=== PATIENT | female | born 1945 | race Caucasian/White ===

== ENCOUNTER 2024-01-01 10:09 | Inpatient (IN) | payer MEDICARE, OTHER, SELFPAY ==
[2024-01-01] VITALS (19 sets, daily range): BP systolic 86–162; BP diastolic 52–102; BMI 21.0
[2024-01-01 05:38] LABS: % Basophils 0.7 % (0-2); % Eosinophils 1.1 % (0-6); % Immature Granulocytes 0.4 % (0-0.5); % Lymphocytes 16.3 % (20.5-51.1); % Monocytes 8.1 % (1.7-9.3); % Neutrophils 73.4 % (42.2-75.2); Absolute Basophils 0.1 10^3/uL (0-0.2); Absolute Eosinophils 0.1 10^3/uL (0-0.7); Absolute Lymphocytes 1.1 10^3/uL (1.2-3.4); Absolute Monocytes 0.6 10^3/uL (0.1-0.6); Absolute Neutrophils 5.1 10^3/uL (1.4-6.5); Hematocrit 35.7 % (37.0-47.0); Hemoglobin 12.4 g/dL (12.0-16.0); Mean Corp Hgb Conc. 34.7 g/dL (33.0-37.0); Mean Corpuscular Volume 89.3 fL (81.0-99.0); Mean Platelet Volume 10.2 fL (7.4-10.4); Nucleated Red Blood Cells % 0 %; Platelet Count 253 10^3/uL (130-400); Red Cell Dist. Width 11.9 % (11.5-14.5)
[2024-01-01 05:52] LABS: ALT (SGPT) 20 U/L (0-35); AST (SGOT) 27 U/L (14-36); Albumin 3.8 g/dl (3.5-5.0); Alkaline Phosphatase 128 U/L (38-126); Blood Urea Nitrogen 17 mg/dl (7-17); Calcium 9.7 mg/dl (8.4-10.2); Carbon Dioxide 31 mmol/L (22-30); Chloride 98 mmol/L (98-107); Estimated Creatinine Clearance 55 ml/min; Glucose 105 mg/dl (70-99); Potassium 3.7 mmol/L (3.5-5.1); Sodium 133 mmol/L (135-145); Total Bilirubin 0.4 mg/dl (0.2-1.3); Total Protein 6.3 g/dl (6.3-8.2); eGFR > 60.00
--- NOTE | 2024-01-01 05:54 | ED.GENMED ---
History of Present Illness
General
Chief Complaint: Chest Pain
Source: patient
Exam Limitations: none
Time Seen by Provider: 01/01/24 05:54
Travel History
Have you had any contact with someone who has COVID-19?: No
Do you have any symptoms of coronavirus? Fever > 100 degrees, chills, cough, shortness of breath, sore throat, loss of taste or smell, muscle aches, or headache?: No
History of Present Illness
History of Present Illness:
Patient with relatively sudden mid chest pain or tightness with radiation to the left arm at about 4 AM. Not exertional. Has not felt well for months. However no previous episodes like this. No syncope. No diaphoresis. No radiation to the back
or neck. Symptoms are ongoing and possibly slightly improved.
Past History
Past History
ED Past Medical History: GERD, HTN, Hypercholesterolemia and Other (Osteoporosis)
ED Past Surgical History: Gynecological and Orthopedic
Social History
Tobacco: Former smoker
Personal:
Living: with family
Review of Systems
Review of Systems
All Other Systems: Not applicable
Constitutional: Reports fatigue; Denies fever or chills
Respiratory: Reports cough
Phy Exam
Physical Exam
Physical Exam:
GENERAL: Alert and oriented in no apparent distress
EYE: Orbits normal.
NECK: Supple, no thyroid palpable
ENT: Pharynx without erythema
CARDIAC: Regular rate and rhythm with occasional irregular beat
LUNGS: Clear breath sounds,normal
ABDOMEN: Soft, without focal tenderness or distention
NEUROLOGICAL: Alert and oriented , grossly non-focal
SKIN: Warm and dry, no rash or lesion, no discoloration, skin intact.
MUSCULOSKELETAL: No edema,no deformity.Good color
PSYCH: Normal and appropriate interaction.
Scores
Heart Score for Chest Pain Patients
STEMI patient?: No
History: Moderately Suspicious
ECG: Normal
Age: >/= 65 years
Risk Factors: 1 or 2 Risk Factors
Troponin: >/= 3 x Normal Limit
Heart Score for Chest Pain Patients: 6
Heart Score Risk: 20.3% MACE over next 6 weeks
Course
Orders/Labs/Results
Orders:
Orders
01/01/24 05:16
Electrocardiogram (*1) Urgent
Reason for Study: Chest Pain
Cardiac Monitoring- Treatment ONCE
EKG- Treatment ONCE
IV Insert/Care/Rem.- Treatment PRN
O2 Therapy [RESP] Urgent
Titrate/Wean O2 to maintain O2 sat greater than (%): 90
Special Instructions: Maintain sats >/=90%
Pulse Ox/spot Check [RESP] Urgent
Quantity: 1
Special Instructions: ON ROOM AIR
01/01/24 05:31
Complete Blood Count/With Diff Urgent
Comprehensive Metabolic Panel Urgent
Troponin I Urgent
01/01/24 06:08
CT Chest Pe Study Urgent
Comment:
Reason For Exam: Chest pain radiation to left arm
01/01/24 07:27
Electrocardiogram (*1) Stat
Reason for Study: Other
Other Reason for Exam: chest pain
EKG- Treatment ONCE
01/01/24 07:49
Troponin I Urgent
01/01/24 08:29
Pantoprazole [Protonix] 40 mg PO NOW STA
01/01/24 08:32
Echo 2D MMode Color/Doppler Routine
Reason for Study: Chest pain
01/01/24 08:45
Heparin 3,200 units IV NOW STA
Heparin 12085 Units/250 ml 25,000 units in 250 ml IV PER PROTOCOL
Weight to be used for heparin protocol in kilograms (kg):: 53.7
Protocol:: Cardiac Tx/Acute Coronary
PTT Goal Range to be used:: PTT 73 to 111 seconds
Order type:: Initial
INITIAL Infusion Dose (UNITS/KG/hr) & then follow protocol:: 12 units/kg/hr
Infusion Dose in UNITS/hr & then follow protocol (UNITS/hr):: 650
INFUSION RATE in mL/hr & then follow protocol (mL/hr):: 6.5
PTT less than or equal to 64 seconds:: Increase rate by 200 units/hr (+ 2 mL/hr)
PTT 64.1 to 72.9 seconds:: Increase rate by 100 units/hr (+ 1 mL/hr)
PTT 73 to 111 seconds:: Target Range. No change in rate.
PTT 111.1 to 130.9 seconds:: Decrease rate by 100 units/hr (- 1 mL/hr)
PTT 131 to 199.9 seconds:: HOLD for 1 hr. Then decrease rate by 200 units/hr (- 2 mL/hr)
PTT greater than or equal to 200 seconds:: HOLD for 2 hrs & Notify Provider. Then decrease by 200 units/hr (-
2 mL/hr)
Lab follow-up:: Each change, PTT q6h until 2 consecutive are therapeutic. Then PTT
daily.
Nursing to Place Non Medication Order As Directed
Physician Order: PTT 6 hours after initial start of Heparin infusion
01/01/24 09:21
PTT Urgent
Comment: Obtain baseline before beginning heparin infusion if not already collected
01/01/24 09:47
Admit/Transfer Patient As Directed
Co-Sign Provider:
Level of Care: Inpatient admission
Assign to:: Telemetry
Physician / Group: Mian
Diagnosis: Chest pain with concern fo ACS
Reason for Telemetry: Chest Pain syndromes
Date to Stop Telemetry: 01/03/24
Time to Stop Telemetry: 11:00
Reason for Hospitalization: Above
Expected length of stay greater than two midnights?: Yes
ELOS- Estimated Length of Stay in days: 2
I certify the patient meets the requirements for IP care: Yes
01/01/24 09:50
Code Status As Directed
Resuscitation Status: Full Code
01/03/24 11:00
DC Protocol for Telemetry ONCE
Abnormal Lab Results
01/01/24 01/01/24 01/01/24
05:31 07:49 09:21
RBC 4.00 L 10^6/uL
(4.20-5.40)
Hct 35.7 L %
(37.0-47.0)
Absolute Lymphs (auto) 1.1 L 10^3/uL
(1.2-3.4)
Lymphocytes % 16.3 L %
(20.5-51.1)
APTT 42.8 H Sec
(23.4-35.0)
Sodium 133 L mmol/L
(135-145)
Carbon Dioxide 31 H mmol/L
(22-30)
Glucose 105 H mg/dl
(70-99)
Alkaline Phosphatase 128 H U/L
(38-126)
Troponin I 1.100 H* D ng/ml
01/01/24 05:31
01/01/24 05:31
Vital Signs
Initial and Last Documented VS:
Initial Vital Signs
Temp Pulse Resp BP Pulse Ox
97.9 F 60 18 139/68 98
01/01/24 05:18 01/01/24 05:18 01/01/24 05:18 01/01/24 05:18 01/01/24 05:18
Last Documented Vital Signs
Temp Pulse Resp BP Pulse Ox
97.9 F 65 17 152/102 98
01/01/24 05:18 01/01/24 10:15 01/01/24 10:15 01/01/24 10:00 01/01/24 09:45
*Radiology
Radiology exam reviewed: radiology read reviewed (No pulmonary emboli. Calcified coronary arteries. Debris in the right lung)
*Pulse Oximetry
Patient hypoxic: no
*EKG
Interpreted by ED Provider?: Yes
Interpretation: normal
Comparison EKG: no changes
Heart Rate: 61
Rate: normal
Rhythm: sinus
[place]: normal axis
Interval: normal interval
QRS Pattern: normal QRS
Ischemia: no ischemia
*Pharmaceutical Engineer Interpretation
Rate: normal
Interpretation: abnormal
Heart Rate: 62
Rhythm: sinus and other (Patient with 1 episode of runs of bigeminy.)
*Critical Care Note
Total Time (30-74mins, 75-104mins- exclusive of procedures): 20
Update Note
Update Note:
Patient had been referred to cardiology based on symptom complex and risk factors. Second troponin is positive. Heparin ordered. Cardiology currently in the room reevaluating
ED Attending Note
-
Portions of this chart may have been created with voice recognition software.� Occasional wrong word or��sound alike� substitutions may have occurred due to the inherent limitations of voice recognition software.
Discharge Plan
Departure
Patient Disposition: Admit
Date of Disposition: 01/01/24
Time of Disposition: 08:23
Presentation/result/management discussed w/ accepting MD/DO: Cardiology
Discharge Problem:
Chest pain, Suspicion for underlying CAD, Inflammation right lung, Possible aspiration, Non-STEMI OR
Interventions
Interventions:
*Risk Screen - Suicide Last Done: 01/01/24 05:18
*General Assessment Last Done: 01/01/24 05:18
*Neglect/Abuse Screening Last Done: 01/01/24 05:18
ED- Fall Risk Assessment Last Done: 01/01/24 05:37
*ED COVID-19 Vaccine History Last Done: 01/01/24 05:56
ED- Cardiac Assessment Last Done: 01/01/24 06:09
[2024-01-01 06:03] LABS: Troponin I 0.013 ng/ml
--- NOTE | 2024-01-01 06:19 | EDRN ---
Pt had run of lauren while Dr Guardado was in the room speaking with pt. Rhythm strips printed and shown to Dr Guardado.
--- NOTE | 2024-01-01 08:21 | CON.CAR ---
Addendum entered and electronically signed by Fredrick Brown MD 01/01/24 09:40:
Primary fuel pilot engineer is Dr. Jacinto Rice.
78-year-old patient with a history of hypertension hypercholesterolemia COPD and bronchiectasis who presented with chest discomfort. Tightness across her chest with radiation down left arm. Total duration 1 hour. Currently chest pain-free no
acute ECG changes. Patient states in general she has not felt great over the last 4 weeks, this includes a dry cough. She has a history of GERD and is on omeprazole. Emergency department forms chest CT which was negative for PE. Patient
received aspirin 81 mg x 4 by report. First troponin negative. Has remained chest pain-free second troponin is elevated at 1.1.
Presentation consistent with ACS. Reviewed issues with patient and her . Cardiac catheterization recommended. Importance of aspirin and antiplatelet therapy post catheterization clearly explained to the patient. Initially she had some
concerns because she tends to have some bruising on her arms. I explained to her that aspirin is long-term and we would not proceed with catheterization and coronary stenting and when she would agree to long-term aspirin. Patient is in agreement.
Issues also were reviewed with her primary fuel pilot engineer Dr. Jacinto Rice. Also note that Dr. Rice is also her cousin.
-Aspirin
-Heparin
-Statin
-Plan for cardiac catheterization further recommendations based on results.
-echo
-Continue treatmentwith PPI
-Evaluation of complaints of cough to be directed by hospitalist.
Original Note:
Consultation
Consultation Request
Date/Time Consultation Requested: 01/01/2024 07:15
Date/Time Consultation Performed: 01/01/2024 07:40
Requesting Provider: Dr. Guardado
Performing Provider: JONATHAN Glass for Dr. Brown
Reason for Consultation: Chest discomfort
Medical History
-
Chief Complaint: Chest tightness
History of Present Illness:
Jil Daigle is a 78-year-old female with hypertension, dyslipidemia, GERD, osteopenia, COPD, bronchiectasis, former smoker, and chronic sinusitis who presents to the ER with a chief complaint of chest tightness. She woke up at approximately 4 AM
to go to the bathroom when she began experiencing severe chest tightness. This radiated down her left arm. She denies associated symptoms of shortness of breath, nausea, vomiting, and diaphoresis. She described her chest tightness as 8/10 in
severity. She called 911. She chewed 324 mg of aspirin. When EMS arrived they had difficulty placing an intravenous line so they did not give her any sublingual nitroglycerin. Her chest tightness persisted for just under 1 hour. It resolved
spontaneously while in the emergency room. Her EKG is stable. CT of the chest showed coronary artery calcifications.
Last month she was having issues with her blood pressure. Her medications were adjusted by her cousin, Dr. Jacinto Rice (fuel pilot engineer). She was on clonidine but it caused severe insomnia and has been discontinued. Her blood pressure has been
120-145 mmHg systolic at home. Her cuff has been correlated by her PCP. She had a Lexiscan nuclear stress test in January, that did not show any abnormality.
Jil has been experiencing the general sense of unwellness for approximately 4 weeks. Her knees have been aching. She had bilateral knee replacements and saw orthopedics in the outpatient setting but did not find any acute cause. She also has
shoulder discomfort. Her shoulder discomfort gets better with exercise and is worse at rest. She is also been experiencing intermittent abdominal pain and has an appointment with GI in the outpatient setting for February. She has had a cough for
the past 4 weeks. She feels it is worse at night when she lays down. This is disrupting her sleep and causing fatigue during the day. She has tried lozenges and is on medication for GERD. The cough is mainly dry but will rarely be productive.
She is accompanied by her , Eileen, who was present for this consultation.
Past Medical History
Past Medical History: COPD, GERD, HTN, Hypercholesterolemia and Other (Bronchiectasis)
Past Surgical History: Gynecological and Orthopedic
Social History
Tobacco: Former Smoker
Personal:
Living: With Family
Family History
Family History: Reviewed & Not Pertinent (Mother just before 100 birthday. Father at the age of 70 due to lymphoma. Son of melanoma at the age of 48.)
Allergies / Home Medications
Allergy/AdvReac Type Severity Reaction Status Date / Time
chocolate flavor Allergy URI Verified 01/01/24 05:16
coconut Allergy URI Verified 01/01/24 05:16
dog dander Allergy URI Verified 01/01/24 05:16
erythromycin base Allergy Nausea / Verified 01/01/24 05:16
Vomiting;
Severe
stomach
pains
feathers Allergy URI Verified 01/01/24 05:16
peanut Allergy URI Verified 01/01/24 05:16
sesame seed Allergy URI Verified 01/01/24 05:16
silk Allergy URI Verified 01/01/24 05:16
soy Allergy URI Verified 01/01/24 05:16
tree nut Allergy URI Verified 01/01/24 05:16
�Medication �Instructions �Recorded �Confirmed �Type
cetirizine 10 mg tablet 10 mg PO DAILY Allergies 12/21/21 01/01/24 History
fluticasone propionate 50 1 spray intranasal DAILY PRN 12/21/21 01/01/24 History
mcg/actuation nasal Congestion
spray,suspension
metoprolol succinate 25 mg 25 mg PO DAILY Blood pressure 12/21/21 01/01/24 History
tablet,extended release 24 hr
omeprazole 20 mg capsule,delayed 20 mg PO DAILY Gastrointestinal 12/21/21 01/01/24 History
release issue
ascorbic acid (vitamin C) 1,000 mg 1 g PO DAILY 01/19/23 01/01/24 History
tablet (Vitamin C)
atorvastatin 10 mg tablet 10 mg PO DAILY 01/19/23 01/01/24 History
cholecalciferol (vitamin D3) 125 125 mcg PO DAILY 01/19/23 01/01/24 History
mcg (5,000 unit) tablet (Vitamin
D3)
qcmecwdw-[id number]-FA-Ca carb-vit K 1 tab PO DAILY 01/19/23 01/01/24 History
18 mg iron-400 mcg-500 mg tablet
(Women's Daily Formula)
cyclosporine 0.05 % eye drops in a 1 drp ophthalmic (eye) Q12H 02/16/23 01/01/24 History
dropperette (Restasis)
hydrochlorothiazide 12.5 mg tablet 12.5 mg PO DAILY #0 tabs 02/20/23 01/01/24 Rx
lisinopril 40 mg tablet 40 mg PO DAILY #0 tabs 02/20/23 01/01/24 Rx
diazepam 5 mg tablet 2.5 mg (1/2 x 5 mg) PO HS #0 tabs 05/08/23 01/01/24 Rx
Review of Systems
-
History Source: Patient
All other systems: Negative unless noted
Constitutional: Fatigue
EENT: No Symptoms
Respiratory: Cough
Cardiac: No Symptoms
Abdomen/GI: No Symptoms
: No Symptoms
Musculoskeletal: No Symptoms
Skin: No Symptoms
Neurological: No Symptoms
Endocrine: No Symptoms
Hematologic/Lymphatic: No Symptoms
Physical Exam
Vital Signs
Temp Pulse Resp BP Pulse Ox
97.9 F 75 14 128/60 100
01/01/24 05:18 01/01/24 07:30 01/01/24 07:30 01/01/24 07:00 01/01/24 07:30
Lab Results
01/01/24 05:31
01/01/24 05:31
Troponin I 0.013 ng/ml 01/01/24 05:31
Physical Exam
General: Well Developed, Well Nourished, No Apparent Distress and Comfortable
HEENT: Normocephalic, Anicteric and Moist Mucous Membranes
Respiratory: Clear and Non Labored Respirations
Cardiac: S1/S2 and Regular Rhythm; Negative Peripheral Edema
Breast: Deferred by me
GI: Soft, Non Tender, Non Distended and Normal Bowel Sounds
Rectal: Deferred by Provider
Genito-urinary: No Costovertebral Tender
Musculoskeletal: No Clubbing, No Cyanosis and No Edema
Skin: Warm and Dry
Neuro: AO x 3
Hematologic/Lymphatic: No Lymphadenopathy
Psych: Calm
Impression / Plan
-
Chest tightness
-Chest tightness with radiation to left arm persisting for just under 1 hour
-EKG is stable
-Initial troponin 0.013, trend
-Coronary artery calcifications on CT
-Echocardiogram
Abnormal chest CT
-Layering debris's and RML, small centrilobular nodular opacities in RML, consideration for aspiration
Cough, per primary service
Hypertension, chronic
-BP stable
-She was intolerant to clonidine as a cause severe insomnia
Mild mitral regurgitation
Mild tricuspid regurgitation
Dyslipidemia, TC 158, HDL 60, LDL 85, TG 52, increase atorvastatin to 20 mg daily
GERD, on PPI
COPD
Bronchiectasis
Former smoker, continued cessation recommended
Data Reviewed
-
EKG: Report Reviewed by me (Sinus rhythm, rate 61)
Medical Tests (Nuc Med, Echo etc): Report Reviewed by me (Prior cardiac testing and CT as above)
Labs: Labs Reviewed by me
Old Records: Reviewed (Outpatient PCP and pulmonary notes)
[2024-01-01 09:38] LABS: APTT 42.8 Sec (23.4-35.0)
--- NOTE | 2024-01-01 10:00 | HPS.HSE ---
Family Physician
-
Family Physician: Zeina Tate
Chief Complaint
-
Chest pain
History of Present Illness
Patient is a 78 years old female with history of hypertension, dyslipidemia, COPD with bronchiectasis presents to the emergency room with chest discomfort. Patient describes tightness across her chest mostly on the left side radiating to the left
arm. She experiences symptoms for about an hour. At the time of my examination patient was chest pain-free while initiated on IV heparin. In addition patient has a history of GERD and she has been placed on omeprazole. She denies any fever or
chills. She has occasional cough, sometimes with oral intake, but denies any history of confirmed aspiration.
While emergency room evaluation patient's EKG showed no evidence of ischemia, her second set of troponin is 1.0.
Patient was initiated on IV heparin and given aspirin and currently chest pain-free
Additional lesion with CT scan of the chest was negative for pulmonary embolism, showed right middle lobe small centrilobular type nodular opacities that could be consistent with aspiration,? Pneumonia.
Patient seen and evaluated by cardiology and with concern for acute coronary syndrome plan for urgent cardiac catheterization.
Medical History
Past Medical History
Past Medical History: Reports COPD (Bronchiectasis), GERD, HTN and Hypercholesterolemia
Past Surgical History: Reports Other (Orthopedic)
Social History
Tobacco: Former Smoker
Alcohol: Occasional
Drug: None
Personal:
Living: With Family
Family History
Family History: Not pertinent
Allergies / Home Medications
Allergies reflects when Allergies were last updated in [facility].
Home Medications with original date entered in [facility]
Allergy/Medication List:
Allergies
Allergy/AdvReac Type Severity Reaction Status Date / Time
chocolate flavor Allergy URI Verified 01/01/24 05:16
coconut Allergy URI Verified 01/01/24 05:16
dog dander Allergy URI Verified 01/01/24 05:16
erythromycin base Allergy Nausea / Verified 01/01/24 05:16
Vomiting;
Severe
stomach
pains
feathers Allergy URI Verified 01/01/24 05:16
peanut Allergy URI Verified 01/01/24 05:16
sesame seed Allergy URI Verified 01/01/24 05:16
silk Allergy URI Verified 01/01/24 05:16
soy Allergy URI Verified 01/01/24 05:16
tree nut Allergy URI Verified 01/01/24 05:16
Home Medications
fluticasone propionate 50 mcg/actuation nasal spray,suspension 1 spray intranasal DAILYPRN PRN Congestion 12/21/21
metoprolol succinate 25 mg tablet,extended release 24 hr 25 mg PO DAILY Blood pressure 12/21/21
omeprazole 20 mg capsule,delayed release 20 mg PO DAILY Gastrointestinal issue 12/21/21
ascorbic acid (vitamin C) 1,000 mg tablet (Vitamin C) 1 g PO DAILY 01/19/23
atorvastatin 10 mg tablet 10 mg PO DAILY 01/19/23
cholecalciferol (vitamin D3) 125 mcg (5,000 unit) tablet (Vitamin D3) 125 mcg PO DAILY 01/19/23
cyclosporine 0.05 % eye drops in a dropperette (Restasis) 1 drp BOTH EYES Q12H 02/16/23
hydrochlorothiazide 12.5 mg tablet 12.5 mg PO DAILY #0 tabs 02/20/23
lisinopril 40 mg tablet 40 mg PO DAILY #0 tabs 02/20/23
Lactobac no.2-Bifidobac no.1-S. thermo 112.5 billion cell capsule (Visbiome) 1 cap PO DAILY 01/01/24
diazepam 5 mg tablet 2.5 mg PO DAILYPRN PRN jaw spasms 01/01/24
therapeutic multivitamin 1 tab PO DAILY 01/01/24
Review of Systems
-
A 12 point ROS was completed and negative except as noted: Yes
Respiratory: Reports See HPI
Cardiac: Reports See HPI
Abdomen/GI: Reports See HPI
Physical Exam
Vital Signs
Vital Signs
Temp Pulse Resp BP Pulse Ox
97.9 F 75 14 128/60 100
01/01/24 05:18 01/01/24 07:30 01/01/24 07:30 01/01/24 07:00 01/01/24 07:30
Physical Exam
General: Well Developed, Well Nourished and No Apparent Distress
HEENT: NormoCephalic, Moist mucous membranes and Atraumatic
Respiratory: Clear
Cardiac: S1/S2 and Regular Rhythm; No Murmur or Rub
GI: Soft, Non Tender, Non Distended and Normal Bowel Sounds; No Organomegaly
Rectal: Deferred by Provider
Musculoskeletal: No Clubbing, No Cyanosis and No Edema
Skin: No Rash
Neuro: Awake, Alert, Oriented, AO x 3 and Nonfocal/grossly intact
Laboratory Results
-
01/01/24 05:31
01/01/24 05:31
Laboratory Results
APTT 42.8 Sec (23.4-35.0) H 01/01/24 09:21
Total Bilirubin 0.4 mg/dl (0.2-1.3) 01/01/24 05:31
AST 27 U/L (14-36) 01/01/24 05:31
ALT 20 U/L (0-35) 01/01/24 05:31
Alkaline Phosphatase 128 U/L (38-126) H 01/01/24 05:31
Troponin I 1.100 ng/ml H* D 01/01/24 07:49
Data Reviewed
-
CT Scan: Image Personally Visualized and interpreted
Lab Data: Labs Reviewed by me
Impression/Plan
-
IMPRESSION:
Chest pain with concern for acute coronary syndrome
Right middle lobe opacity on CT scan with concern for aspiration.
Mild hyponatremia sodium 133
Conditions prior to admission:
Essential hypertension.
Dyslipidemia
GERD.
COPD with bronchiectasis
Former smoker
Osteoarthritis
PLAN:
Chest pain with concern for acute coronary syndrome
No prior history of CAD.
EKG with no ischemia
Troponin rising at 1.0.
Started on aspirin and initiated on IV heparin.
Echocardiogram is pending
Plan is for urgent cardiac catheterization
Trend troponin
Continue metoprolol and statin
Essential hypertension
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
Hold HCTZ given mild hyponatremia
Mild hyponatremia
Will hold HCTZ
Follow BMP
Right middle lobe opacity with concern for possible aspiration pneumonitis.
Patient complains occasional cough, waking up at night
She has a history of GERD
Her most recent EGD showed chronic gastritis.
No prior history of overt aspiration.
She presents being afebrile with normal white count.
Check procalcitonin
Monitor closely off antibiotics, although would be low threshold to start coverage for aspiration pneumonia afebrile.
Speech and swallow consultation
Continue PPI
COPD with bronchiectasis
Stable respiratory status
Patient is not on home O2.
No bronchospasm on exam.
Former smoker, quit years ago.
DVT prophylaxis IV heparin/mechanical
Full code
[2024-01-01] MEDS: HEPARIN 3200 UNITS IV (10:10)
[2024-01-01] MEDS: HEPARIN 25000 UNITS/250 ML IV (10:13)
--- NOTE | 2024-01-01 15:10 | PTCARENOTE ---
Assumed care of pt upon tsf from ED. VS taken, and pt called to [facility].
[2024-01-01 16:04] LABS: ACT-LR - POC 393 Seconds (116-155)
--- NOTE | 2024-01-01 16:33 | ITS.CL.ANGIO ---
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
Angioplasty
Procedure Report:
CARDIAC CATHETERIZATION REPORT
Date of Procedure: 01/01/2024
Referring: Fredrick Brown M.D.
INDICATION: Non-ST elevation myocardial infarction.
PROCEDURE:
1. Left heart catheterization.
2. Coronary angiography.
3. Successful PCI of the left circumflex artery.
ACCESS:
6 [place] right radial artery.
CATHETERS:
1. 5 [place] JR4.
2. 5 [place] JL 3.5.
3. 6 [place] EBU 3.5 guiding catheter.
HEMODYNAMIC DATA
Weight (kg): 53.5
AO (s/d/x, mmHg): 123/67/91
LV (s/x mmHg): 123/6
LEFT VENTRICULOGRAPHY: Not performed.
CORONARY ANGIOGRAPHY
Dominance: Right.
Left Main: Normal size, bifurcating vessel. There is no coronary artery disease.
LAD: Normal size vessel giving rise to several small diagonals. There are minor luminal irregularities in the mid vessel.
Ramus: Congenitally absent.
Circumflex: Large size, nondominant vessel giving rise to 2 significant marginals. OM1 is a 2 mm vessel arising fairly high off of the circumflex. OM 2 is a large vessel supplying the majority of the inferolateral wall. There is a 75% lesion in
the distal circumflex, immediately proximal to the takeoff of OM 2.
RCA: Normal size, dominant vessel. There are minor luminal irregularities in the mid vessel.
INTERVENTION(S)
1. Successful PCI of the 75% distal circumflex lesion (Xience Skypoint 3.5 x 18 YG, postdilated with a 3.5 NC balloon) with reduction in stenosis to 0%, maintaining ARSLAN-3 flow.
Narrative:
The decision was made to proceed with percutaneous coronary intervention. The diagnostic catheter was removed over a wire and a 6Fr EBU 3.5 guiding catheter was advanced to the aortic root and seated in the left main coronary artery. Additional
heparin was given and a Power Turn Flex wire was advanced into the distal aspect of OM 2. The 75% distal circumflex lesion was predilated with a 2.0 x 12 semi-compliant balloon to 12 charity. The semi-compliant balloon was removed and a Xience Skypoint
3.5 x 18 drug-eluting stent was advanced. The stent was deployed at 12 atmospheres. The stent balloon was removed. A 3.5 x 12 noncompliant balloon was advanced into the stent and the stent was postdilated to 12 atmospheres. Angiography was performed
in orthogonal views, confirming good stent expansion and an excellent angiographic result. The coronary wire was withdrawn and the guide was disengaged from the artery. The catheter was removed over a standard J-wire.
Closure Device: Vascular band.
Radiation (mGy): 215.83
DAP (cm2.Gy): 12.0692
Fluoroscopy time (minutes): 6.9
Sedation time (minutes): 41
CONCLUSIONS
1. Right dominant circulation with luminal irregularities in the RCA and mid LAD and a 75% lesion in the distal circumflex, status post successful PCI (Xience Skypoint 3.5 x 18 YG, postdilated with a 3.5 NC balloon) with reduction in stenosis to
0%, maintaining ARSLAN-3 flow.
2. Normal filling pressures (LVEDP = 6 mmHg at 53.5 kg).
RECOMMENDATIONS:
1. Expectant management after cardiac catheterization via right rate approach.
2. Limited weight bearing on the right wrist for one week.
3. Dual antiplatelet therapy with aspirin and ticagrelor for at least 1 year, followed by aspirin indefinitely.
4. Aggressive risk factor modification with high-dose, high potency statin.
5. Echocardiogram ordered and pending.
6. Referral to cardiac rehab.
Copy to: Fredrick Brown M.D., Zeina Tate M.D.
Brady Lugo DO, FACC, FACP
--- NOTE | 2024-01-01 16:37 | CM ---
ivan scales at [facility]- her cost is $40/month- it is in stock
--- NOTE | 2024-01-01 17:00 | CM ---
spoke to pt in room, she is prev indep, lives with her in a 2 story home with 8 steps to enter. she deies any dc planning needs or dme's. plan is for dc to home when medically stable
[2024-01-01] MEDS: TOPROL XL 25 MG PO (17:11)
[2024-01-01] MEDS: ZESTRIL 40 MG PO (17:12)
[2024-01-01] MEDS: LIPITOR 40 MG PO (17:12)
[2024-01-01] MEDS: NSS 1000 IV (17:13)
[2024-01-01 17:26] LABS: Procalcitonin < 0.05 ng/ml (0.0-0.25)
--- NOTE | 2024-01-01 18:16 | PTCARENOTE ---
Called into pt's room, large hematoma noted from blood draw in LAC, pressure applied, and hematoma pressed out.
[2024-01-01] MEDS: RESTASIS 0.05% OPHTHALMIC EMULSION 1 DROPS BOTH EYES (20:03)
[2024-01-01 22:47] LABS: INR 1.07; PT 13.8 Sec (11.4-14.6)
[2024-01-01 22:48] LABS: APTT 39.4 Sec (23.4-35.0)
[2024-01-02] MEDS: VALIUM 2.5 MG PO (00:04)
--- NOTE | 2024-01-02 01:40 | PTCARENOTE ---
Right radial cath site with 2x2 dressing saturated with blood under tegaderm, I am continuing to observe asd assess site. Anxious at times. SR on the monitor in the 60-80's.
[2024-01-02 03:21] VITALS: BP 126/64
[2024-01-02 04:05] LABS: % Basophils 0.7 % (0-2); % Eosinophils 1.1 % (0-6); % Immature Granulocytes 0.5 % (0-0.5); % Lymphocytes 15.5 % (20.5-51.1); % Monocytes 6.6 % (1.7-9.3); % Neutrophils 75.6 % (42.2-75.2); Absolute Basophils 0.1 10^3/uL (0-0.2); Absolute Eosinophils 0.1 10^3/uL (0-0.7); Absolute Lymphocytes 1.2 10^3/uL (1.2-3.4); Absolute Monocytes 0.5 10^3/uL (0.1-0.6); Absolute Neutrophils 5.7 10^3/uL (1.4-6.5); Hematocrit 33.1 % (37.0-47.0); Hemoglobin 11.9 g/dL (12.0-16.0); Mean Platelet Volume 10.2 fL (7.4-10.4); Nucleated Red Blood Cells % 0 %; Platelet Count 228 10^3/uL (130-400); Red Blood Cell Count 3.72 10^6/uL (4.20-5.40); White Blood Cell Count 7.5 10^3/uL (4.8-10.8)
[2024-01-02 04:57] LABS: Blood Urea Nitrogen 13 mg/dl (7-17); Calcium 8.9 mg/dl (8.4-10.2); Carbon Dioxide 28 mmol/L (22-30); Chloride 104 mmol/L (98-107); Estimated Creatinine Clearance 62 ml/min; Glucose 91 mg/dl (70-99); HDL Cholesterol 43 mg/dl; LDL Cholesterol, Calculated 61 mg/dl; Potassium 3.9 mmol/L (3.5-5.1); Sodium 137 mmol/L (135-145); Total Cholesterol 121 mg/dl (50-199); Triglyceride 86 mg/dl (10-149); Very Low Density Lipoprotein 17 mg/dl (0-30); eGFR > 60.00
--- NOTE | 2024-01-02 08:47 | W.PN.CD ---
Today's Communication / Plan
-
cont ASA, Brilinta, Toprol XL, lisinopril, atorvastatin
change radial dressing
if stable radial site, and able to ambulate hallway: discharge planning
Impression / Plan
-
CAD/NSTEMI
-s/p PCI to Lcx 12/31
-no arrhythmia on tele
-echo: EF 65-70%, mild/mod MR
-stable, no angina
-cont ASA, Brilinta, Toprol XL, lisinopril, atorvastatin
Hypertension, chronic
-BP stable: continue lisinopril 40mg daily, Toprol XL 25mg daily
Mild/moderate mitral regurgitation
Dyslipidemia, TC 158, HDL 60, LDL 85, TG 52: increased atorvastatin to 40 mg daily
GERD, on PPI
COPD
Bronchiectasis
Former smoker, continued cessation recommended
Physical Exam
Vital Signs/Labs
Vital Signs
Temp Pulse Resp BP Pulse Ox
97.9 F 73 18 126/64 99
01/02/24 03:20 01/02/24 06:15 01/02/24 03:20 01/02/24 03:21 01/02/24 03:20
01/01/24 01/02/24 01/03/24
06:59 06:59 06:59
Actual Weight 53.7 kg 51.2 kg
01/02/24 03:52
01/02/24 03:52
PT 13.8 Sec (11.4-14.6) 01/01/24 22:17
INR 1.07 01/01/24 22:17
APTT 39.4 Sec (23.4-35.0) H 01/01/24 22:17
Triglycerides 86 mg/dl (10-149) 01/02/24 03:52
LDL Cholesterol, Calc 61 mg/dl 01/02/24 03:52
VLDL Cholesterol, Calc 17 mg/dl (0-30) 01/02/24 03:52
HDL Cholesterol 43 mg/dl 01/02/24 03:52
LAB Results
01/01/24 01/01/24 01/01/24
05:31 07:49 16:51
Troponin I 0.013 1.100 H* D 5.190 H*
01/01/24 01/02/24
22:17 03:52
Troponin I 2.550 H* D 2.140 H*
Physical Exam
Constitutional: No acute distress and Comfortable
EENT: Moist mucous membranes
Cardiovascular: Rhythm & rate is regular, Pedal edema is absent, JVD pressure is normal and Systolic murmur absent
Respiratory: Lungs clear to auscul.
GI: Soft and Distention absent
Neuro/Psych: AO x 3
Data Reviewed
-
Date of Service: January 02, 2024
EKG: Other (SR 70s, no arrhythmia)
Echo: Report Reviewed by me (per note)
Labs: Labs Reviewed by me
[2024-01-02 08:58] VITALS: BP 133/68
--- NOTE | 2024-01-02 09:00 | PTCARENOTE ---
Assumed care of pt from [facility] porter shift AAOx3 w/no c/o CP or SOB. Pt is reporting some upper epigastric pain, she rates as a 2/10 & asked for her 'stomach medicine'. Administered PO Protonix as ordered. Pt's VS stable w/HR in the 80's, AM BP 133/68.
Pt SR on telemetry monitoring. Pt's R radial dressing saturated w/old sanguineous drainage. Dressing changed w/no signs or symptoms of bleeding or hematoma at the access site. Pt w/purple, red ecchymosis around the area of band placement, but no
swelling noted. Pt's L AC & L upper arm w/large area of dark purple ecchymosis & quarter-sized lump at the AC where previous blood draw was done. CONFERENCE CENTER COORDINATOR notified. Pt's LUE elevated on pillows & ice pack placed for comfort. Pt w/questions RE: her new
Atorvastatin dose, CONFERENCE CENTER COORDINATOR notified & will be in to see pt. Plan of care ongoing.
--- NOTE | 2024-01-02 09:56 | W.DS.TRANS ---
DC Summary - Life Teacher
-
Discharge Instructions:
Discharge Diagnosis/Procedures NSTEMI, s/p angioplasty and stent to Left
Circumflex artery
Diet Low Cholesterol
Other Services Cardiac Rehab
Instructions:
Stand-Alone Forms: DC Instructions- Cath/EP Lab
Changes to Home Medications: Yes
Discharge Medications:
DC Medications w/original date entered in [facility]
fluticasone propionate 50 mcg/actuation nasal spray,suspension 1 spray intranasal DAILYPRN PRN Congestion 12/21/21
metoprolol succinate 25 mg tablet,extended release 24 hr 25 mg PO DAILY Blood pressure 12/21/21
omeprazole 20 mg capsule,delayed release 20 mg PO DAILY Gastrointestinal issue 12/21/21
ascorbic acid (vitamin C) 1,000 mg tablet (Vitamin C) 1 g PO DAILY Supplement 01/19/23
cholecalciferol (vitamin D3) 125 mcg (5,000 unit) tablet (Vitamin D3) 125 mcg PO DAILY Supplement 01/19/23
cyclosporine 0.05 % eye drops in a dropperette (Restasis) 1 drp BOTH EYES Q12H Eye Condition 02/16/23
lisinopril 40 mg tablet 40 mg PO DAILY #0 tabs 02/20/23
Lactobac no.2-Bifidobac no.1-S. thermo 112.5 billion cell capsule (Visbiome) 1 cap PO DAILY probiotic 01/01/24
diazepam 5 mg tablet 2.5 mg PO DAILYPRN PRN jaw spasms 01/01/24
therapeutic multivitamin 1 tab PO DAILY Supplement 01/01/24
aspirin 81 mg chewable tablet 81 mg PO DAILY #30 tabs 01/02/24
atorvastatin 40 mg tablet 40 mg PO QPM #30 tabs 01/02/24
ticagrelor 90 mg tablet (Brilinta) 90 mg PO BID #60 tabs 01/02/24
Home Medication Changes
DAPT initiated.
Lipitor increased
HCTZ stopped.
Pending Results: No
[2024-01-02] MEDS: THERAGRAN 1 TABLET PO (10:14)
[2024-01-02] MEDS: RESTASIS 0.05% OPHTHALMIC EMULSION 1 DROPS BOTH EYES (10:14)
[2024-01-02] MEDS: TOPROL XL 25 MG PO (10:15)
[2024-01-02] MEDS: PROTONIX 40 MG PO (10:15)
[2024-01-02] MEDS: VISBIOME 1 CAP PO (10:15)
[2024-01-02] MEDS: VITAMIN D3 (cholecalciferol) 125 MCG PO (10:15)
[2024-01-02] MEDS: VITAMIN C 1000 MG PO (10:15)
[2024-01-02] MEDS: BRILINTA 90 MG PO (10:15)
[2024-01-02] MEDS: LOW STRENGTH ASPIRIN 81 MG PO (10:15)
[2024-01-02] MEDS: ZESTRIL 40 MG PO (10:15)
--- NOTE | 2024-01-02 11:21 | CM ---
Chart reviewed. Patient is independent of ADLS, lives with her spouse in a [address], [address], 0 DME. I called patients [facility] to confirm Brilinta was in stock. Plan is for the patient to return home.
[2024-01-02 13:03] VITALS: BP 150/59
--- NOTE | 2024-01-02 13:09 | PTOTSP ---
SPEECH THERAPY SWALLOW EVALUATION:
Patient exhibits grossly functional oropharyngeal swallow function at bedside; However, patient with Chest CT concerning for aspiration in Right middle lobe. Pt also endorsed dysphagia symptoms including occasional coughing with liquids when taking
too many pills at one time; occasional large pills getting stuck in throat; 8lb unintentional weight loss over past 2-3 months. RN reported signs of aspiration with thin liquids. Given these indications for potential dysphagia, recommend
Videofluoroscopic Swallowing Study to further assess swallow physiology. Educated patient on VSE procedure and rationale. Patient declined VSE at this time due to not wanting additional radiation, despite ST outlining risks/benefits. Education
provided
regarding risk for aspiration and related complications, as well as unknown etiology of aspiration and potential dysphagia. Pt continued to decline VSE at this time. Recommend pt to re-consider VSE as an outpatient and/or FEES to evaluate swallow
function. Recommend Regular texture diet and thin liquids. Medications whole with thin liquid, one at a time, or in puree. Extensive education provided to patient regarding aspiration risks and precautions. All questions answered. Speech therapy to
sign off at this time, as no further skilled ST services are indicated at the acute care level; Please re-consult ST should patient change mind and wish to participate in VSE to further evaluate swallowing and possible etiology for aspiration.
RECOMMEND:
1) Videofluoroscopic Swallowing Study to further assess swallow physiology and possible etiology for aspiration
2) Regular texture diet, thin liquids
3) Aspiration precautions: Small single sips; Reduce distractions when eating/drinking; Small bites; Slow rate of intake; Meds whole with liquid one at a time, or in puree; Oral care 3x/day and Increased mobility as able/tolerated to reduce risk for
nosocomial infection
4) Pt declining VSE at this time due to radiation exposure, despite education regarding risks/benefits. ST to sign off at this time. Please re-consult should plan of care change
[2024-01-02 15:55] VITALS: BP 156/85
[2024-01-02 15:57] VITALS: BP 147/61
--- NOTE | 2024-01-02 16:52 | PTCARENOTE ---
Pt D/C'd to w/her providing transportation. Pt left w/personal belongings incl cell phone & odd piece checker, prescriptions, & educational books. Pt transported out via wheelchair by staff.
== END 2024-01-02 17:00 | disposition home or self-care (01) | DRG 322 ==
LOC: IVU 10:09
PROVIDERS: Emergency Medicine; Internal Medicine Cardiovascular Disease; ADMITTING PHYSICIAN Internal Medicine; EMERGENCY PHYSICIAN Emergency Medicine; FAMILY PHYSICIAN Family Medicine; OTHER PHYSICIAN Internal Medicine Cardiovascular Disease
PROC: 4A023N7 Measurement of Cardiac Sampling and Pressure, Left Heart, Percutaneous Approach (ICD-10-PCS; 2024-01-01)
PROC: B2111ZZ Fluoroscopy of Multiple Coronary Arteries using Low Osmolar Contrast (ICD-10-PCS; 2024-01-01)
PROC: 027034Z Dilation of Coronary Artery, One Artery with Drug-eluting Intraluminal Device, Percutaneous Approach (ICD-10-PCS; 2024-01-01)
DX: I21.4 Non-ST elevation (NSTEMI) myocardial infarction (principal); E87.1 Hypo-osmolality and hyponatremia; I10 Essential (primary) hypertension; J47.9 Bronchiectasis, uncomplicated; K21.9 Gastro-esophageal reflux disease without esophagitis; E78.00 Pure hypercholesterolemia, unspecified; M19.90 Unspecified osteoarthritis, unspecified site; R91.8 Other nonspecific abnormal finding of lung field; R05.9 Cough, unspecified; I08.1 Rheumatic disorders of both mitral and tricuspid valves; I25.10 Atherosclerotic heart disease of native coronary artery without angina pectoris; Z87.891 Personal history of nicotine dependence
CPT/HCPCS: 71275; 80048; 80053; 80061; 84145; 84484; 85025; 85347; 85610; 85730; 92610; 93005; 93306; 93458; 99285; C1725; C1874; C1894; C9600; Q9967

== ENCOUNTER 2024-02-14 17:04 | Outpatient (RCR) | payer MEDICARE, OTHER, SELFPAY | END 2024-02-14 23:59 | disposition home or self-care (01) | LOC: CRHB 17:04 | PROVIDERS: ATTENDING PHYSICIAN Internal Medicine Cardiovascular Disease; FAMILY PHYSICIAN Family Medicine | DX: I25.10 Atherosclerotic heart disease of native coronary artery without angina pectoris (principal); Z95.5 Presence of coronary angioplasty implant and graft; I25.2 Old myocardial infarction | CPT/HCPCS: G0422; G0423 ==

== ENCOUNTER → 2024-02-28 07:58 | Outpatient (REF) | payer MEDICARE, OTHER, SELFPAY | LOC: RAD 07:58 | PROVIDERS: ATTENDING PHYSICIAN Nurse Practitioner Family; FAMILY PHYSICIAN Family Medicine | DX: R63.4 Abnormal weight loss (principal) | CPT/HCPCS: 74177; Q9967 ==

== ENCOUNTER 2024-02-28 16:11 | Outpatient (RCR) | payer MEDICARE, OTHER, SELFPAY | END 2024-02-28 23:59 | disposition home or self-care (01) | LOC: CRHB 16:11 | PROVIDERS: ATTENDING PHYSICIAN Internal Medicine Cardiovascular Disease; FAMILY PHYSICIAN Family Medicine | DX: I25.10 Atherosclerotic heart disease of native coronary artery without angina pectoris (principal); Z95.5 Presence of coronary angioplasty implant and graft; I25.2 Old myocardial infarction | CPT/HCPCS: G0422 ==

== ENCOUNTER → 2024-05-08 09:45 | Outpatient (REF) | payer MEDICARE, OTHER, SELFPAY ==
[2024-05-08 11:28] LABS: Hemoglobin 12.7 g/dL (12.0-16.0); Mean Corp Hgb Conc. 33.4 g/dL (33.0-37.0); Mean Corpuscular Hgb 31.5 pg (27.0-31.0); Mean Corpuscular Volume 94.3 fL (81.0-99.0); Mean Platelet Volume 11.7 fL (7.4-10.4); Platelet Count 181 10^3/uL (130-400); Red Blood Cell Count 4.03 10^6/uL (4.20-5.40); Red Cell Dist. Width 12.9 % (11.5-14.5); White Blood Cell Count 5.3 10^3/uL (4.8-10.8)
== END ==
LOC: SDSPAT 09:45
PROVIDERS: ATTENDING PHYSICIAN Specialist; FAMILY PHYSICIAN Family Medicine
DX: Z01.818 Encounter for other preprocedural examination (principal)
CPT/HCPCS: 36415; 85027; 93005

== ENCOUNTER 2024-05-27 06:13 | Day surgery (SDC) | payer MEDICARE, OTHER, SELFPAY ==
[2024-05-08 10:37] VITALS: BMI 19.2
[2024-05-27] VITALS (11 sets, daily range): BP systolic 142–170; BP diastolic 62–82; PULSE 75; O2SAT 98
[2024-05-27] MEDS: CELEBREX 200 MG PO (10:05)
[2024-05-27] MEDS: TYLENOL 1000 MG PO (10:05)
[2024-05-27] MEDS: DILAUDID 0.5 MG IV ×3 (14:37→15:20)
[2024-05-27] MEDS: CYKLOKAPRON 650 MG PO ×2 (15:00→17:02)
[2024-05-27] MEDS: COMPAZINE 5 MG IV (17:08)
== END 2024-05-27 17:21 | disposition home or self-care (01) ==
LOC: SDS 06:13
PROVIDERS: ATTENDING PHYSICIAN Specialist; FAMILY PHYSICIAN Family Medicine
DX: M25.862 Other specified joint disorders, left knee (principal)
CPT/HCPCS: 29884; 88304; 97162

== ENCOUNTER → 2024-06-08 10:12 | Outpatient (REF) | payer MEDICARE, OTHER, SELFPAY | LOC: RAD 10:12 | PROVIDERS: ATTENDING PHYSICIAN Internal Medicine Critical Care Medicine; FAMILY PHYSICIAN Family Medicine | DX: R91.1 Solitary pulmonary nodule (principal) | CPT/HCPCS: 71250 ==

== ENCOUNTER → 2024-06-26 18:03 | Outpatient (REF) | payer MEDICARE, OTHER, SELFPAY | LOC: WDC 18:03 | PROVIDERS: ATTENDING PHYSICIAN Family Medicine | DX: Z12.31 Encounter for screening mammogram for malignant neoplasm of breast (principal) | CPT/HCPCS: 77063; 77067 ==

== ENCOUNTER 2025-01-03 14:19 | Emergency (ER) | payer MEDICARE, OTHER, SELFPAY ==
[2025-01-03 14:21] VITALS: BP 181/75
[2025-01-03 14:44] LABS: % Basophils 0.6 % (0-2); % Eosinophils 1.1 % (0-6); % Immature Granulocytes 0.2 % (0-0.5); % Lymphocytes 18.3 % (20.5-51.1); % Monocytes 7.8 % (1.7-9.3); Absolute Eosinophils 0.1 10^3/uL (0-0.7); Absolute Lymphocytes 1.2 10^3/uL (1.2-3.4); Absolute Monocytes 0.5 10^3/uL (0.1-0.6); Absolute Neutrophils 4.5 10^3/uL (1.4-6.5); Hematocrit 36.5 % (37.0-47.0); Hemoglobin 12.4 g/dL (12.0-16.0); Mean Corpuscular Hgb 31.2 pg (27.0-31.0); Mean Corpuscular Volume 91.7 fL (81.0-99.0); Mean Platelet Volume 11.4 fL (7.4-10.4); Nucleated Red Blood Cells % 0 %; Platelet Count 193 10^3/uL (130-400); Red Blood Cell Count 3.98 10^6/uL (4.20-5.40); Red Cell Dist. Width 12.3 % (11.5-14.5); White Blood Cell Count 6.3 10^3/uL (4.8-10.8)
[2025-01-03 15:06] LABS: ALT (SGPT) 22 U/L (0-35); AST (SGOT) 26 U/L (14-36); Albumin 4.3 g/dl (3.5-5.0); Alkaline Phosphatase 73 U/L (38-126); Blood Urea Nitrogen 17 mg/dl (7-17); Calcium 10.1 mg/dl (8.4-10.2); Carbon Dioxide 26 mmol/L (22-30); Chloride 106 mmol/L (98-107); Glucose 80 mg/dl (70-99); Lipase 80 U/L (23-300); Potassium 4.2 mmol/L (3.5-5.1); Sodium 138 mmol/L (135-145); Total Bilirubin 0.5 mg/dl (0.2-1.3); Total Protein 6.8 g/dl (6.3-8.2); eGFR > 60.00
[2025-01-03 15:08] VITALS: BP 168/81
[2025-01-03 15:19] LABS: Troponin I < 0.012 ng/ml
[2025-01-03 16:00] VITALS: BP 157/50
[2025-01-03 17:56] LABS: Troponin I < 0.012 ng/ml
[2025-01-03 18:00] VITALS: BP 155/62
--- NOTE | 2025-01-03 18:30 | ED.GENMED ---
History of Present Illness
General
Chief Complaint: Chest Pain
Source: patient
Time Seen by Provider: 01/03/25 15:50
History of Present Illness
History of Present Illness:
Note:
CHIEF COMPLAINT(S)
Epigastric tightness and lower chest pressure.
HISTORY OF PRESENT ILLNESS
The patient is a 79-year-old female presenting with a one-week history of epigastric tightness and lower chest pressure. Initially, she attributed the symptoms to gastrointestinal issues. This morning, after breakfast, she experienced a sense of
fogginess. Upon checking at home, her blood pressure was 121/56 mmHg, which she considered low. The patient reports intermittent discomfort that is more noticeable during the night and slightly after meals, sometimes associated with mild shortness
of breath. She also experienced discomfort radiating down the left arm. There is no swelling in the legs, and shortness of breath is occasional and not consistently related to the pain. Last cardiac evaluations, including stress tests, were
performed a year ago, coinciding with her coronary stenting procedure. Present cardiac enzyme results and an EKG appear normal.
PHYSICAL EXAM
Nursing notes reviewed and vital signs reviewed.
- General: Patient is awake, alert, and oriented.
- Cardiovascular: Heart sounds are regular without murmur.
- Pulmonary: Lungs are clear bilaterally.
- Abdomen: Soft with no distension, tenderness noted in mid-abdominal and epigastric areas. No palpable masses, no abdominal bruits.
- Extremities: No edema, all four extremities are warm and well-perfused.
PLAN
1. Review past medical records.
2. Monitor heart enzymes and EKG results.
3. Conduct abdominal imaging, including an ultrasound of the gallbladder and aorta, to rule out gallbladder pathology and aortic aneurysm.
4. Perform liver function tests and pancreatic enzyme levels.
5. Monitor and ensure patient hydration.
DIFFERENTIAL DIAGNOSIS
The Differential Diagnosis includes, in no particular order and is not limited to:
1. Gastroesophageal reflux disease (GERD)
2. Angina pectoris
3. Acute coronary syndrome
4. Aortic aneurysm
5. Gallbladder disease (Cholecystitis)
6. Peptic ulcer disease
7. Pancreatitis
8. Esophageal spasm
9. Myocardial infarction
10. Costochondritis
CARE-UPDATE
01/03/25 - 17:40
Ultrasound results are normal with no signs of aneurysm or gallbladder disease noted, eliminating the immediate need for surgical intervention. Decision to avoid surgery for now aligns with patients preference. A repeat troponin test is pending,
with prior levels reported as normal. This is part of the ongoing assessment to rule out potential cardiac issues, taking into account the patients history of requiring a stent after initially normal results. Further management decisions will be
based on the upcoming troponin results.
EKG
My independent EKG interpretation is:
- Rhythm: Sinus Bradycardia
- Heart Rate: Bradycardic
- Covel: Normal
- ST Segment: No notable changes
- T Waves: No notable inversions
Disposition:
SUMMARY OF ENCOUNTER
The patient is a 79-year-old with epigastric pain ongoing for the last week. Despite having a negative EKG and troponin tests, her history of coronary disease required further evaluation and management.
DISPOSITION
The patient was advised to follow up with cardiology on an outpatient basis, with a referral placed for cardiac follow-up.
PLAN
Outpatient follow-up with cardiology was advised due to the patients history of coronary disease and current symptoms. A hotline for outpatient cardiac follow-up was arranged.
INDEPENDENT REVIEW OF LABS AND INTERPRETATION OF TESTS
- My independent review of the CBC is normal.
- My independent review of the chemistry panel is grossly normal.
- My independent review of the troponin is normal on two measurements, three hours apart.
ADDITIONAL TESTING AND IMAGING CONSIDERED
No additional immediate testing or imaging was ordered as the ultrasound revealed no triple A or biliary disease, and lipase levels were normal.
MEDICAL DECISION MAKING
1. Number & Complexity of Problems: Chronic conditions affecting care include coronary artery disease. Differential diagnoses considered included acute coronary syndrome and gastrointestinal causes.
2. Data Reviewed:
- Category 1: Labs and imaging reviewed include CBC, chemistry panel, troponin, and ultrasound.
- Category 2: Previous records and lab reports from December 2023 reviewed.
3. Risk: Consideration of admission was made due to the complexity and risk, but outpatient management was deemed appropriate based on reassuring work-up, stable vitals, and reliable follow-up arrangements.
PATHOLOGIES TO CONSIDER
Given the symptoms and history of coronary artery disease, acute coronary syndrome was a serious condition to consider. Other gastrointestinal pathologies and cardiac-related issues were also ruled out based on work-up.
Past History
Past History
ED Past Medical History: GERD, HTN, Hypercholesterolemia and Other (Osteoporosis)
ED Past Surgical History: Gynecological and Orthopedic
Social History
Tobacco: Former smoker
Personal:
Living: with family
Phy Exam
Physical Exam
Physical Exam:
.
Scores
Heart Score for Chest Pain Patients
STEMI patient?: No
History: Slightly or Non-Suspicious
ECG: Normal
Age: >/= 65 years
Risk Factors: >/= 3 Risk Factors or History of CAD
Troponin: </= Normal Limit
Heart Score for Chest Pain Patients: 4
Heart Score Risk: 20.3% MACE over next 6 weeks
Course
Orders/Labs/Results
Orders:
Orders
01/03/25 14:21
Electrocardiogram (*1) Urgent
Reason for Study: Chest Pain
EKG- Treatment ONCE
01/03/25 14:35
Complete Blood Count/With Diff Urgent
Comprehensive Metabolic Panel Urgent
Lipase Urgent
Troponin I Urgent
01/03/25 15:59
Abdominal Aorta US [US Abdominal Aorta] Urgent
Comment:
Reason For Exam: mid abd pain
US Abdomen Complete/Upper Urgent
Comment:
Reason For Exam: upper/mid abd pain.
01/03/25 17:16
Troponin I Urgent
Abnormal Lab Results
01/03/25
14:35
RBC 3.98 L 10^6/uL
(4.20-5.40)
Hct 36.5 L %
(37.0-47.0)
MCH 31.2 H pg
(27.0-31.0)
MPV 11.4 H fL
(7.4-10.4)
Lymphocytes % 18.3 L %
(20.5-51.1)
01/03/25 14:35
01/03/25 14:35
Vital Signs
Initial and Last Documented VS:
Initial Vital Signs
Temp Pulse Resp BP Pulse Ox
97.9 F 51 18 181/75 100
01/03/25 14:21 01/03/25 14:21 01/03/25 14:21 01/03/25 14:21 01/03/25 14:21
Last Documented Vital Signs
Temp Pulse Resp BP Pulse Ox
97.9 F 53 16 155/62 97
01/03/25 14:21 01/03/25 18:00 01/03/25 18:00 01/03/25 18:00 01/03/25 18:31
*Pulse Oximetry
SaO2: 97
Oxygen Mode of Delivery: Room air
Patient hypoxic: no
*Satellite Tv Installer Interpretation
Rate: normal
Interpretation: normal
Rhythm: sinus
*Critical Care Note
Total Time (30-74mins, 75-104mins- exclusive of procedures): Not Applicable
ED Attending Note
-
Portions of this chart may have been created with voice recognition software.� Occasional wrong word or��sound alike� substitutions may have occurred due to the inherent limitations of voice recognition software.
Discharge Plan
Departure
Patient Disposition: Home (Routine Discharge)
Date of Disposition: 01/03/25
Time of Disposition: 18:32
Patient with high blood pressure during this ER visit?: Yes
Discharge Problem:
Chest pain, Acute epigastric pain
Instructions: Chest Pain CBC Follow Up, BLOOD PRESSURE
Prescriptions:
No Action
metoprolol succinate 25 MG tablet extended release 24 hr
25 mg PO DAILY
fluticasone propionate 1 SPRAY spray,suspension
1 spray intranasal DAILYPRN PRN (Reason: Congestion)
ascorbic acid (vitamin C) [Vitamin C] 1,000 mg Tablet
1 g PO DAILY
cholecalciferol (vitamin D3) [Vitamin D3] 125 mcg (5,000 unit) Tablet
125 mcg PO DAILY
cyclosporine [Restasis] 0.05 % Dropperette
1 drp BOTH EYES Q12H
lisinopril 40 mg Tablet
40 mg PO DAILY Qty: 0 0RF
therapeutic multivitamin Tablet
1 tab PO DAILY
Visbiome 112.5 billion cell Capsule
1 cap PO DAILY
diazepam 5 MG tablet
2.5 mg PO DAILYPRN PRN (Reason: jaw spasms)
Patient Comments:
12/21/2021: last filled 12/21/21, 30 tabs for 30 days from [id number]
aspirin 81 mg Tablet,Chewable
81 mg PO DAILY Qty: 30 0RF
hydralazine 10 mg Tablet
20 mg PO BID
cetirizine [Zyrtec] 10 mg Tablet
10 mg PO DAILY
pravastatin 40 mg Tablet
40 mg PO DAILY
clopidogrel [Plavix] 75 mg Tablet
75 mg PO DAILY
pantoprazole 20 mg Tablet,Delayed Release (Dr/Ec)
20 mg PO DAILY
coQ10 (ubiquinol) 200 mg Capsule
200 mg PO DAILY
atorvastatin 40 mg tablet
40 mg PO DAILY
acetaminophen [Tylenol 8 Hour] 650 mg Tablet Extended Release
1,300 mg PO Q8H PRN (Reason: pain)
Benefiber (wheat dextrin) 1 gram Tablet
1 g PO DAILY
Referrals:
Zeina Tate MD [Family Provider, Family Practice]
Activity Restrictions/Additional Instructions:
Please avoid strenuous or exertional activity until cleared by cardiology. Please see cardiology in the next 48 hours for reevaluation. Return immediately for worsening pain, shortness breath, palpitations, sweating, nausea, weakness of any kind,
numbness, tingling or any other concerns.
Cardiology has been notified and a follow up appointment has been requested. Someone will call you on the next business day to schedule a follow up appointment.
Interventions
Interventions:
*Risk Screen - Suicide Last Done: 01/03/25 14:21
*General Assessment Last Done: 01/03/25 15:35
*Neglect/Abuse Screening Last Done: 01/03/25 14:21
*ED- Fall Risk Assessment Last Done: 01/03/25 15:35
*ED COVID-19 Vaccine History Last Done: 01/03/25 15:35
*Nursing Disposition Last Done: 01/03/25 18:35
ED- Cardiac Assessment Last Done: 01/03/25 15:35
Discharge Date and Time
Discharge Date/Time: 01/03/25 18:50
Print Language: SYRIAC
== END 2025-01-03 18:50 | disposition home or self-care (01) ==
LOC: EMR 14:19
PROVIDERS: Emergency Medicine; EMERGENCY PHYSICIAN Emergency Medicine; FAMILY PHYSICIAN Family Medicine
DX: R10.13 Epigastric pain (principal); R07.89 Other chest pain; Z87.891 Personal history of nicotine dependence; I10 Essential (primary) hypertension
CPT/HCPCS: 99285; 76700; 76770; 80053; 83690; 84484; 85025; 93005

== ENCOUNTER → 2025-01-13 11:49 | Outpatient (REF) | payer MEDICARE, OTHER, SELFPAY | LOC: RCS 11:49 | PROVIDERS: ATTENDING PHYSICIAN Nurse Practitioner; FAMILY PHYSICIAN Family Medicine | DX: I10 Essential (primary) hypertension (principal); R07.89 Other chest pain; I25.10 Atherosclerotic heart disease of native coronary artery without angina pectoris | CPT/HCPCS: 78452; 93017; A9500 ==

== ENCOUNTER → 2025-03-03 09:15 | Outpatient (REF) | payer MEDICARE, OTHER, SELFPAY | LOC: RCS 09:15 | PROVIDERS: ATTENDING PHYSICIAN Nurse Practitioner; FAMILY PHYSICIAN Family Medicine | DX: R00.1 Bradycardia, unspecified (principal) | CPT/HCPCS: 93225; 93226 ==

== ENCOUNTER 2025-03-18 06:23 | Day surgery (SDC) | payer MEDICARE, OTHER, SELFPAY | END 2025-03-18 16:28 | disposition home or self-care (01) | LOC: GI 06:23 | PROVIDERS: ATTENDING PHYSICIAN Internal Medicine Gastroenterology; FAMILY PHYSICIAN Family Medicine | DX: Z12.11 Encounter for screening for malignant neoplasm of colon (principal); K64.8 Other hemorrhoids; K57.30 Diverticulosis of large intestine without perforation or abscess without bleeding; K62.89 Other specified diseases of anus and rectum; R10.13 Epigastric pain; R07.89 Other chest pain; K31.7 Polyp of stomach and duodenum; K22.89 Other specified disease of esophagus; K31.89 Other diseases of stomach and duodenum; D12.2 Benign neoplasm of ascending colon; D12.3 Benign neoplasm of transverse colon; Z86.0100 Personal history of colon polyps, unspecified | CPT/HCPCS: 45385; 43239; 88305; 88342 ==

== ENCOUNTER → 2025-05-19 12:08 | Outpatient (REF) | payer MEDICARE, OTHER, SELFPAY | LOC: RAD 12:08 | PROVIDERS: ATTENDING PHYSICIAN Internal Medicine Gastroenterology; FAMILY PHYSICIAN Family Medicine | DX: K59.00 Constipation, unspecified (principal); R10.13 Epigastric pain | CPT/HCPCS: 74018 ==

== ENCOUNTER → 2025-05-23 07:29 | Outpatient (REF) | payer MEDICARE, OTHER, SELFPAY | LOC: RAD 07:29 | PROVIDERS: ATTENDING PHYSICIAN Internal Medicine Gastroenterology; FAMILY PHYSICIAN Family Medicine | DX: R10.13 Epigastric pain (principal) | CPT/HCPCS: 78226; A9537 ==

== ENCOUNTER → 2025-06-08 08:19 | Outpatient (REF) | payer MEDICARE, OTHER, SELFPAY | LOC: MRI 08:19 | PROVIDERS: ATTENDING PHYSICIAN Physician Assistant; FAMILY PHYSICIAN Family Medicine | DX: M79.652 Pain in left thigh (principal); M25.562 Pain in left knee | CPT/HCPCS: 73718; 73721 ==

== ENCOUNTER → 2025-07-14 10:17 | Outpatient (REF) | payer MEDICARE, OTHER, SELFPAY | LOC: HWRAD 10:17 | PROVIDERS: ATTENDING PHYSICIAN Internal Medicine Critical Care Medicine; FAMILY PHYSICIAN Family Medicine | DX: R91.8 Other nonspecific abnormal finding of lung field (principal) | CPT/HCPCS: 71250 ==